=== PATIENT | female | born 1950 | race Hispanic/Latino ===

== ENCOUNTER 2016-10-07 22:37 | Emergency (ER) | payer BC, SELFPAY ==
[2016-10-07 22:38] VITALS: PULSE 60
[2016-10-07 23:36] VITALS: BMI 25.6
[2016-10-07 23:39] VITALS: BP 151/81; RESP 18; TEMP 98
--- NOTE | 2016-10-08 00:11 | ED PDOC ---
Arrival/HPI - General Chief Complaint: Back Pain Time Seen by Provider: 10/07/16 23:37 Historian: Patient - History of Present Illness Narrative History of Present Illness (Text): 10/08/16 00:13 Kate Guerrero is a 65 year old female, with a history of A-fib on Coumadin, asthma, bronchitis, renal colic, presents to the emergency department complaining of right flank pain for the past 2 day. Reports that she had a recent lithotripsy performed by Dr. Contreras. Reports of difficulty urinating and blood in urine. Patient took Tylenol with Codeine today for minimal relief. Denies any fever, chills, chest pain, shortness of breath, nausea, vomiting, diarrhea, or any other complaints at this time. Time/Duration: < week (2 days ) Symptom Onset: Gradual Symptom Course: Unchanged Severity Level: Moderate Activities at Onset: Light Past Medical History - Provider Review Nursing Documentation Reviewed: Yes - Infectious Disease Hx of Infectious Diseases: None - Tetanus Immunization Tetanus Immunization: Unknown - Cardiac Hx Atrial Fibrillation: Yes Hx Cardiac Arrhythmia: Yes (a fib, palpitations) Hx Pacemaker: No - Pulmonary Hx Asthma: Yes Hx Bronchitis: Yes - Neurological Hx Neurological Disorder: No Hx Paralysis: No - Renal Hx Kidney Stones: Yes (right and left kidney stones) - Endocrine/Metabolic Hx Endocrine Disorders: No - Hematological/Oncological Hx Blood Transfusions: No Hx Blood Transfusion Reaction: No - Musculoskeletal/Rheumatological Hx Falls: No - Gastrointestinal Hx Diverticulitis: Yes - Genitourinary/Gynecological Hx Hematuria: Yes (sometimes from kidney stones) - Psychiatric Hx Depression: No Hx Emotional Abuse: No Hx Physical Abuse: No Hx Substance Use: No - Past Surgical History Past Surgical History: No Previous - Surgical History Hx Tonsillectomy: Yes Other/Comment: Lithotripsy - Anesthesia Hx Anesthesia: Yes Hx Anesthesia Reactions: No Hx Malignant Hyperthermia: No - Suicidal Assessment Feels Threatened In Home Enviroment: No Family/Social History - Physician Review Nursing Documentation Reviewed: Yes Family/Social History: No Known Family HX Smoking Status: Never Smoked Hx Alcohol Use: No Hx Substance Use: No Hx Substance Use Treatment: No Allergies/Home Meds Allergies/Adverse Reactions: Allergies No Known Allergies Allergy (Verified 04/07/14 11:47) Home Medications: Home Meds Medication Instructions Recorded Confirmed Albuterol Sulfate [Proair Hfa] 2 puff IH PRN PRN 12/15/11 04/07/14 Alprazolam [Xanax] 0.25 mg PO BID 12/15/11 04/07/14 PARoxetine [Paxil] 10 mg PO HS 12/15/11 04/07/14 Budesonide [Pulmicort] 1 puff IH BID PRN 07/25/12 04/07/14 Digoxin 0.25 mg PO DAILY 07/25/12 04/07/14 Sotalol Hydrochloride [Sotalol] 160 mg PO BID 07/25/12 04/07/14 Warfarin [Coumadin] 3 mg PO DAILY 07/25/12 04/07/14 Review of Systems - Physician Review All systems were reviewed & negative as marked: Yes - Review of Systems Constitutional: Normal. absent: Fatigue, Fevers Respiratory: Normal. absent: SOB, Cough Cardiovascular: Normal. absent: Chest Pain Musculoskeletal: Back Pain (right flank pain ) Neurological: Normal. absent: Headache, Dizziness Psychiatric: Normal Physical Exam Vital Signs Reviewed: Yes Vital Signs Temp Pulse Resp BP Pulse Ox 10/08/16 02:24 90 18 99 10/07/16 23:38 98.0 F 110 H 18 151/81 H 96 Temperature: Afebrile Blood Pressure: Normal Pulse: Tachycardic Respiratory Rate: Normal Appearance: Positive for: Well-Appearing, Non-Toxic, Comfortable Pain Distress: None Mental Status: Positive for: Alert and Oriented X 3 - Systems Exam Head: Present: Atraumatic, Normocephalic Pupils: Present: PERRL Extroacular Muscles: Present: EOMI Conjunctiva: Present: Normal Respiratory/Chest: Present: Clear to Auscultation, Good Air Exchange. No: Respiratory Distress, Accessory Muscle Use Cardiovascular: Present: Regular Rate and Rhythm, Normal S1, S2. No: Murmurs Abdomen: Present: Normal Bowel Sounds. No: Tenderness, Distention, Peritoneal Signs Back: Present: Normal Inspection. No: CVA Tenderness, Paraspinal Tenderness Upper Extremity: Present: Normal Inspection. No: Cyanosis, Edema Lower Extremity: Present: Normal Inspection. No: Edema Neurological: Present: GCS=15, CN II-XII Intact, Speech Normal Skin: Present: Warm, Dry, Normal Color. No: Rashes Psychiatric: Present: Alert, Oriented x 3, Normal Insight, Normal Concentration Medical Decision Making ED Course and Treatment: 10/08/16 00:19 Impression: A 65 year old female who presents to the emergency department complaining of right flank pain for past 2 days. Plan: -- CT abdomen pelvis -- Labs -- Morphine -- Reassess and disposition Progress Notes: 10/08/16 01:32 CT abdomen pelvis results reviewed: IMPRESSION: 1. Bladder calcification, possibly recently passed ureteral calculus. 2. RIGHT ureteral stent with persistent mild to moderate hydroureteronephrosis. 3. Cholelithiasis. 10/08/16 02:09 Patient is stable for discharge. Will discharge patient with prescription for pain medication as she has acute renal calculi. Advised to present back to emergency department for worsening symptoms and follow up with urologist within few days. Re-evaluation Time: 02:05 Reassessment Condition: Re-examined, Improved - Lab Interpretations Microbiology Results: Microbiology Results 10/08/16 01:55 Urine,Clean Catch Urine Culture - Final No Growth (<1,000 CFU/ML) Lab Results: 10/08/16 01:10 10/08/16 01:10 Lab Results 10/08/16 01:55: Urine Color Dark yellow, Urine Appearance Cloudy, Urine pH 6.5, Ur Specific [place] 1.025, Urine Protein >=300 H, Urine Glucose (UA) 100 H, Urine Ketones Negative, Urine Blood Large H, Urine Nitrate Positive H, Urine Bilirubin Negative, Urine Urobilinogen 1.0 H, Ur Leukocyte Esterase Small H, Urine RBC Tntc, Urine WBC 1 - 3, Ur Epithelial Cells 0 - 2, Urine Bacteria Rare 10/08/16 01:10: WBC 12.9 H D, RBC 4.40, Hgb 14.6, Hct 41.5, MCV 94.3, MCH 33.2, MCHC 35.2, RDW 12.8, Plt Count 233, MPV 12.0 H, Gran % 62.9, Lymph % (Auto) 27.7 , [place] % (Auto) 6.3 H, Eos % (Auto) 2.9, Baso % (Auto) 0.2, Gran # 8.08 H, Lymph # 3.6 H, [place] # 0.8 H, Eos # 0.4, Baso # 0.03, Sodium 142, Potassium 3.4 L , Chloride 101, Carbon Dioxide 29, Anion Gap 15, BUN 19, Creatinine 0.6, Est GFR ( Amer) > 60, Est GFR (Non-Af Amer) > 60, Random Glucose 113 H, Calcium 9.7, Total Bilirubin 0.7, AST 25, ALT 13, Alkaline Phosphatase 56, Total Protein 8.1, Albumin 4.2, Globulin 3.9, Albumin/Globulin Ratio 1.1 I have reviewed the lab results: Yes - RAD Interpretation Narrative RAD Interpretations (Text): EXAM: CT Abdomen and Pelvis Without Intravenous Contrast FINDINGS: Lower thorax: No acute findings. ABDOMEN: Liver: Unremarkable. Gallbladder and bile ducts: Calcified gallstone. No ductal dilation. Pancreas: Unremarkable. No ductal dilation. Spleen: No splenomegaly. Adrenals: No mass. Kidneys and ureters: Minimal stranding about RIGHT kidney. Few renal calculi. 0.9 x 0.8 x 0.5 cm calculus within LEFT renal pelvis. [id number] pelvocaliectasis of RIGHT kidney. No hydronephrosis of LEFT kidney. RIGHT ureteral stent. Mild stranding about RIGHT ureter. Mildly dilated RIGHT ureter. Stomach and bowel: Segmental areas of underdistention of colon. No definite mural thickening. No obstruction. Appendix: Normal caliber. No inflammation. PELVIS: Bladder: 0.1 x 0.1 x 0.1 cm calculus along posterior wall of bladder. Reproductive: Unremarkable as visualized. ABDOMEN and PELVIS: Intraperitoneal space: No significant fluid collection. No free air. Bones/joints: Mild degenerative changes of spine. Degenerative anterolisthesis of mid lumbar spine. No acute fracture. Soft tissues: Tiny umbilical hernia containing fat. Vasculature: Few small calcified splenic artery aneurysms, grossly stable. Lymph nodes: No pathologically enlarged lymph nodes. IMPRESSION: 1. Bladder calcification, possibly recently passed ureteral calculus. 2. RIGHT ureteral stent with persistent mild to moderate hydroureteronephrosis. 3. Cholelithiasis. 4. Incidental/non-acute findings are described above. Radiology Orders: 10/08/16 00:11 ABD & PELVIS W/O PO OR IV CONT [CT] Stat Cemetery Warden: Radiologist - Medication Orders Current Medication Orders: Discontinued Medications Morphine Sulfate (Morphine) 2 mg IVP STAT STA Stop: 10/08/16 00:13 Last Admin: 10/08/16 00:58 Dose: Not Given Non-Admin Reason: Patient Refused Oxycodone/Acetaminophen (Percocet 5/325 Mg Tab) 1 tab PO STAT STA Stop: 10/08/16 01:18 Last Admin: 10/08/16 01:26 Dose: 1 TAB - Scribe Statement The provider has reviewed the documentation as recorded by the Pratima Otero Provider Attestation: All medical record entries made by the Yariibleyla were at my direction and personally dictated by me. I have reviewed the chart and agree that the record accurately reflects my personal performance of the history, physical exam, medical decision making, and the department course for this patient. I have also personally directed, reviewed, and agree with the discharge instructions and disposition. Disposition/Present on Arrival - Present on Arrival Any Indicators Present on Arrival: No History of DVT/PE: No History of Uncontrolled Diabetes: No Urinary Catheter: No History of Decub. Ulcer: No History Surgical Site Infection Following: None - Disposition Have Diagnosis and Disposition been Completed?: Yes Diagnosis: Renal colic on right side Disposition: HOME/ ROUTINE Disposition Time: 02:05 Condition: GOOD Discharge Instructions (ExitCare): Renal Colic (ED) Additional Instructions: follow up with dr contreras in am Prescriptions: oxyCODONE/Acetaminophen [Percocet 5/325 mg Tab] 1 ea PO QID #6 tab
[2016-10-08] MEDS ORDERED: Morphine 2 mg/ml ISec IVP STA (00:12)
[2016-10-08] MEDS ORDERED: Oxycodone/Acetaminophen 5/325 mg Tab PO STA (01:17)
[2016-10-08 01:21] LABS: ADD MANUAL DIFF? NO
--- NOTE | 2016-10-08 01:21 | CT ---
EXAM: CT Abdomen and Pelvis Without Intravenous Contrast CLINICAL HISTORY: 65 years old, female; Pain; Abdominal pain; Flank; Right; Prior surgery; Surgery date: 3-7 days post-operative; Additional info: Flank pain TECHNIQUE: Axial computed tomography images of the abdomen and pelvis without intravenous contrast. This CT exam was performed using one or more of the following dose reduction techniques: automated exposure control, adjustment of the mA and/or kV according to patient size, and/or use of iterative reconstruction technique. Coronal and sagittal reformatted images were created and reviewed. COMPARISON: CT - ABD PELVIS W/O PO OR IV CONT 07/10/2015 2:02:23 PM FINDINGS: Lower thorax: No acute findings. ABDOMEN: Liver: Unremarkable. Gallbladder and bile ducts: Calcified gallstone. No ductal dilation. Pancreas: Unremarkable. No ductal dilation. Spleen: No splenomegaly. Adrenals: No mass. Kidneys and ureters: Minimal stranding about RIGHT kidney. Few renal calculi. 0.9 x 0.8 x 0.5 cm calculus within LEFT renal pelvis. Mici-tj-[id number] pelvocaliectasis of RIGHT kidney. No hydronephrosis of LEFT kidney. RIGHT ureteral stent. Mild stranding about RIGHT ureter. Mildly dilated RIGHT ureter. Stomach and bowel: Segmental areas of underdistention of colon. No definite mural thickening. No obstruction. Appendix: Normal caliber. No inflammation. PELVIS: Bladder: 0.1 x 0.1 x 0.1 cm calculus along posterior wall of bladder. Reproductive: Unremarkable as visualized. ABDOMEN and PELVIS: Intraperitoneal space: No significant fluid collection. No free air. Bones/joints: Mild degenerative changes of spine. Degenerative anterolisthesis of mid lumbar spine. No acute fracture. Soft tissues: Tiny umbilical hernia containing fat. Vasculature: Few small calcified splenic artery aneurysms, grossly stable. Lymph nodes: No pathologically enlarged lymph nodes. IMPRESSION: 1. Bladder calcification, possibly recently passed ureteral calculus. 2. RIGHT ureteral stent with persistent mild to moderate hydroureteronephrosis. 3. Cholelithiasis. 4. Incidental/non-acute findings are described above.
[2016-10-08 01:29] LABS: BASO # 0.03 K/mm3 (0.0-2.0); BASO % 0.2 % (0.0-3.0); EOS # 0.4 (0.0-0.7); EOS % 2.9 % (1.5-5.0); GRAN # 8.08 (1.4-6.5); GRAN % 62.9 % (50.0-68.0); HEMATOCRIT 41.5 % (36.0-48.0); LYMPH # 3.6 (1.2-3.4); LYMPH % 27.7 % (22.0-35.0); MEAN CELL VOLUME 94.3 fL (80.0-105.0); MEAN CORPUSCULAR HEMOGLOBIN 33.2 pg (25.0-35.0); MEAN CORPUSCULAR HGB CONC 35.2 g/dl (31.0-37.0); MONO # 0.8 (0.1-0.6); MONO % 6.3 % (1.0-6.0); PLATELET COUNT 233 10^3/uL (120.0-450.0); RED CELL DISTRIBUTION WIDTH 12.8 % (11.5-14.5); WHITE BLOOD COUNT 12.9 10^3/ul (4.5-11.0)
[2016-10-08 01:44] LABS: ALB/GLOB RATIO 1.1 (1.1-1.8); ALKALINE PHOSPHATASE 56 U/L (38-133); ALT/SGPT 13 U/L (7-56); AST/SGOT 25 U/L (15-39); BILIRUBIN,TOTAL 0.7 mg/dL (0.2-1.3); BLOOD UREA NITROGEN 19 mg/dL (7-21); CALCIUM 9.7 mg/dL (8.4-10.5); CARBON DIOXIDE 29 mmol/L (21-33); CHLORIDE 101 mmol/L (98-107); GFR AFRICAN-AMERICAN > 60; GLUCOSE,RANDOM 113 mg/dL (70-110); POTASSIUM 3.4 mmol/L (3.6-5.0); SODIUM 142 mmol/L (132-148); TOTAL PROTEIN 8.1 g/dL (5.8-8.3)
[2016-10-08 02:29] VITALS: PULSE 90; O2SAT 99
[2016-10-08 04:48] LABS: PH,URINE 6.5 (4.7-8.0); URINE BILIRUBIN NEGATIVE (NEGATIVE); URINE BLOOD LARGE (NEGATIVE); URINE GLUCOSE (UA) 100 mg/dL (NEGATIVE); URINE KETONE NEGATIVE (NEGATIVE); URINE LEUKOCYTE ESTERASE SMALL Leu/uL (NEGATIVE); URINE PROTEIN >=300 mg/dL (<30 mg/dL)
[2016-10-08 05:06] LABS: URINE APPEARANCE CLOUDY (CLEAR); URINE COLOR DARK YELLOW (YELLOW)
[2016-10-08 05:10] LABS: URINE EPITHELIAL CELLS 0 - 2 /hpf (0-5); URINE RBC TNTC /hpf (0-2)
[2016-10-08 05:12] LABS: URINE BACTERIA RARE (NEG)
== END 2016-10-08 02:27 | disposition home or self-care (01) ==
LOC: ED 22:37
DX: N23 Unspecified renal colic (principal); I48.91 Unspecified atrial fibrillation; Z79.01 Long term (current) use of anticoagulants

== ENCOUNTER 2018-09-22 15:31 | Outpatient (CLI) | payer MEDICARE | END 2018-09-22 15:32 | disposition home or self-care (01) | LOC: LAB 15:31 ==